=== PATIENT | female | born 1955 | race Caucasian/White ===

== ENCOUNTER 2016-03-23 11:31 | Emergency (ER) | payer OTHER ==
[~2016-03-23] VITALS: Ht 154.9 cm; Wt 63.5 kg
[~2016-03-23 11:31] MED LIST: AMOXICILLIN500 MG PO; PERCOCET 325 MG1 TA2 PO
[2016-03-23 11:33] VITALS: BP 134/81
--- NOTE | 2016-03-23 12:55 | ED GENERAL ADULT ---
History of Present Illness General Chief Complaint: General Adult Stated Complaint: NEEDS MED REFILL Source: patient, old records Exam Limitations: no limitations Vital Signs & Intake/Output Vital Signs & Intake/Output Vital Signs Date Time Temp Pulse Resp B/P Pulse O2 O2 Flow FiO2 Ox Delivery Rate 03/23 1133 98.0 101 20 134/81 97 Room Air Allergies Coded Allergies: NO KNOWN ALLERGIES (08/25/14) Reconcile Medications Amoxicillin 500 MG CAP 1 TAB PO TID TOOTH PAIN Meloxicam (Mobic) 15 MG TABLET 1 TAB PO DAILY pain Oxycodone HCl 5 MG CAPSULE 1 CAP PO BID PRN pain OXYCODONE HCL/ACETAMINOPHEN (Percocet 5-325 MG Tablet) 325 MG/5 MG TAB 1-2 TAB PO Q4-6 PRN PRN PAIN Triage Note: PT TO ED FOR MED REFILL OF OXYCODONE 30MG. Triage Nurses Notes Reviewed? yes Onset: Abrupt Duration: day(s): (2), constant Timing: recent history Injury Environment: home Severity: moderate Severity Numbers: 7 No Modifying Factors: none Associated Symptoms: back pain HPI: 60-year-old female with history of chronic back pain presents sent in by her primary care physician for refill of her oxycodone 30 mg which she takes 3 times a day. The patient states that she was informed by her primary care physician today that he can no longer write her for these prescriptions. There is been no recent new injury trauma or fall, she denies any urinary bowel incontinence pain is aching and sharp constant waxing and waning in intensity. She has not attempted taking any wlyc-wgi-[id number] medications she's been without her meds for the past 2 days. She denies any abdominal pain nausea vomiting diarrhea no urinary symptoms fevers or chills (ZANE CANTRELL) Past History Travel History Traveled to [place] past 21 day No Medical History Any Pertinent Medical History? see below for history Neurological: seizure Cardiovascular: hyperlipidemia Musculoskeletal: chronic back pain Psychiatric: anxiety Endocrine: hypothyroidism Surgical History Surgical History: N Psychosocial History What is your primary language Lithuanian Tobacco Use: Current Daily Use Daily Tobacco Use Amount/Type: => 5 Cigarettes daily ETOH Use: denies use Illicit Drug Use: denies illicit drug use Family History Hx Contributory? No (ZANE CANTRELL) Review of Systems Review of Systems Constitutional: Reports: see HPI. All Other Systems: Reviewed and Negative Comments Review of systems: See HPI, All other systems negative. Constitutional, no chills no fever, no malaise HEENT: No visual changes no sore throat no congestion Cardiovascular: No chest pain , no palpitation Skin, no jaundice no rashes, no change in skin Respiratory: No dyspnea no cough no sputum GI: No nausea no vomiting, no diarrhea, no bloating/constipation : No dysuria No hematuria, no frequency, no discharge Muscle skeletal: No joint pain, no joint swelling, back pain, no neck pain, Neurologic: No numbness no headache Psych: No stress Heme/endocrine: No bruising no bleeding Immunology: No lymphadenopathy (ZANE CANTRELL) Physical Exam Physical Exam General Appearance: well developed/nourished, no apparent distress, alert, awake Comments: Well-developed well-nourished patient in no apparent distress. HEENT: Atraumatic, extraocular motion intact Neck: Supple, FROM, Back: FROM, bilateral paralumbar muscle tenderness no midline tenderness no ecchymosis or signs of trauma no CVA tenderness Cardiovascular: Regular rate and rhythms no murmurs rubs or gallops, Respiratory: Chest nontender.There were no bony deformities, no asymmetry. No respiratory distress. Patient speaking in full complete sentences. Breath sounds clear to auscultation bilaterally: NO W/R/R Abdomen: Soft nontender no rebound or guarding Extremities: Negative straight leg raise bilaterally full range of motion Neuro: Alert and oriented x3 Skin: Warm & dry;No appreciable rash on exposed skin Psych: Mood affect normal, normal memory normal judgment. Core Measures ACS in differential dx? No CVA/TIA Diagnosis: No Severe Sepsis Present: No Septic Shock Present: No (ZAEN CANTRELL) Progress Differential Diagnoses I considered the following diagnoses in my evaluation of the patient: Herniated disc muscle strain cauda equina P pyelonephritis pain narcotic dependence Plan of Care: I discussed with the patient that I will give her a 1 time prescription of OxyContin 5 mg dispensed number was 10 I discussed with however that this emergency room will not and cannot continue to provide her with refills. The patient was provided information for follow-up with pain management she is ambulatory with steady gait upon discharge Recent x-rays from 7 days ago were reviewed IMPRESSION: Mild low thoracic and lumbar spondylosis without acute abnormality. No significant degenerative change at L2-L3. DICTATED BY: FERNIE YAÑEZ MD DATE/TIME DICTATED:03/17/161124 SENIOR CONSTRUCTION ESTIMATOR:MINE DATE/TIME TRANSCRIBED:03/17/161124 Initial ED EKG: none (ZANE CANTRELL) Departure Departure Time of Disposition: 1304 Disposition: HOME OR SELF CARE Condition: Stable Clinical Impression Primary Impression: Chronic back pain Referrals: OMAR SAINI,ANTONIO HARTMAN MD,SUKHJINDER St (PCP/Family) Additional Instructions: Follow-up with Dr. quigley of [facility] as well as her primary care physician. This emergency room cannot continue to provide you with your chronic narcotic pain medications. Your prescriptions were sent to the [facility] pharmacy Departure Forms: Customer Survey General Discharge Information Prescriptions: Current Visit Scripts Oxycodone HCl 1 CAP PO BID PRN pain #10 CAP Meloxicam (Mobic) 1 TAB PO DAILY #30 TAB (ZANE CANTRELL) PA/MASTER CRAFTSMAN Co-Sign Statement Statement: ED Attending supervision documentation- [] I saw and evaluated the patient. I have also reviewed all the pertinent lab results and diagnostic results. I agree with the findings and the plan of care as documented in the PA's/MASTER CRAFTSMAN's documentation. [X] I have reviewed the ED Record and agree with the PA's/MASTER CRAFTSMAN's documentation. [] Additions or exceptions (if any) to the PAs/MASTER CRAFTSMAN's note and plan are summarized below: [] (WOO CROOKS DO) Critical Care Note Critical Care Note Critical Care Time: non-applicable (ZANE CANTRELL)
[2016-03-23] MEDS ORDERED: OXYCODONE HCL5 M2 PO (13:05)
[2016-03-23] MEDS ORDERED: MOBIC15 M1 PO (13:05)
== END 2016-03-23 13:29 ==
LOC: ERH 11:31
DX: G89.29 Other chronic pain (principal); M54.5 Low back pain
CPT/HCPCS: 99281